=== PATIENT | male | born 1965 | race Hispanic/Latino ===

== ENCOUNTER 2020-02-29 10:11 | Observation (INO) | payer MEDICAID ==
[~2020-02-29] VITALS: Ht 172.7 cm; Wt 99.0 kg
--- NOTE | 2020-02-29 11:13 | NUR ---
PT AMBULATED TO RM 10 WITH STEADY GAIT.
--- NOTE | 2020-02-29 12:10 | NUR ---
PT RESTING NO FURTHER COMPLAINTS, NO S/S OF DISTRESS, STATES HE HAS BEEN COUGHING FOR LAST 2 MONTHS AND HE THINKS THAT MAY BE PART OF THE PAINHE IS HAVING.
[2020-02-29 12:25] LABS: HEMATOCRIT 48.8 % (39.0-50.0); HEMOGLOBIN 15.8 g/dl (14.0-18.0); IMMATURE GRANULOCYTES 0.4 % (0.0-5.0); MEAN CELL VOLUME 81.3 fL CALC (80.0-100.0); MEAN CORPUSCULAR HGB 26.3 pG CALC (26.0-32.0); MEAN CORPUSCULAR HGB CONC 32.4 g/dL CAL (32.0-36.0); NEUT# 4.31 thou/uL (1.82-7.42); RED CELL DISTRI WIDTH 12.1 % (11.5-15.5)
[2020-02-29 12:48] LABS: ALBUMIN 4.3 g/dL (3.2-5.0); ALKALINE PHOSPHATASE 130 u/l (38-126); ANION GAP 13 (6-22 (CALC)); BILIRUBIN, TOTAL 0.8 mg/dL (0.0-1.4); BUN 12 mg/dL (9-20); BUN/CREATININE RATIO 17 (12-20 (CALC)); CARBON DIOXIDE 26 mmol/l (22-30); CHLORIDE 99 mmol/l (95-108); CREATININE 0.7 mg/dL (0.7-1.3); GFR > 60 ML/MIN (>=60 (CALC)); GFR FOR AFR.AMER. > 60 ML/MIN (>=60 (CALC)); LIPASE 41 u/l (23-300); POTASSIUM 4.3 mmol/l (3.5-5.1); SGOT/AST 50 u/l (17-59); TOTAL PROTEIN 7.7 g/dL (6.3-8.2)
[2020-02-29 12:49] LABS: SODIUM 134 mmol/l (137-146)
--- NOTE | 2020-02-29 13:15 | NUR ---
PT RESTING AWARE OF PLANNED ADMISSION, GIVES VERBAL CONSENT, OFFERS NO NEW COMPLAINTS
--- NOTE | 2020-02-29 14:15 | NUR ---
AMBULATED TO BATHROOM, USING URINAL FOR SPECIMEN COLLECTION, AMBUALTED WUITH STEADY GAIT TO AND FROM, WILL CONTINUE TO MONTIOR.
--- NOTE | 2020-02-29 15:00 | NUR ---
PT AWARE THAT WE P[REFER TO HAVE IV ACCESS SO THAT IF HE HAS ANY ISSUES [employer] ARE NOT TRYING TO START AN IV UNDER DURESS, PT STATES HE WOULD STILL RATHER WAIT WILL NOTIFY PROVIDER
--- NOTE | 2020-02-29 15:06 | NUR ---
PT DECLINES IV ACCESS AT THIS TIME, Michelle STANTON APRN AT BEDSIDE AND AWARE
--- NOTE | 2020-02-29 15:22 | NUR ---
REPORT CALLED TO GAYATHRI CLARK ON MED SURG
--- NOTE | 2020-02-29 15:32 | NUR ---
PT TRANSFERRED TO MED SURG VIA W/C WITH TEL BOX IN PLACE, PROVIDER AWARE OF NO IV ACCESS AND OK WITH AT THIS TIME
[2020-02-29 15:33] VITALS: BP 145/106
--- NOTE | 2020-02-29 15:33 | NUR ---
PT ARRIVED TO PT VIA WC ACCOMPANIED BY CHOLO ROSENBERG. A&O X3. PT STEADY DURING AMBULATION. PT VOICES SLIGHT CP, 10/15. PT REFUSED IV SITE, KELSEY ROE AWARE AND ORDER FOR NO IV ACCESS APPROVAL IN CHART. EXPLAINED TO PT THAT IF IV SITE WAS NEEDED IT WAS TO BE PLACED. PT VERBALIZED UNDERSTANDING. ORIENTED PT TO ROOM. STEPHEN DORADO REFUSED. ASSESSMENT COMPLETED. DISCUSSED POC. CALL LIGHT IN REACH. CONTINUE TO MONITOR.
--- NOTE | 2020-02-29 16:50 | NUR ---
BP REEVALUATED MANUALLY 140/90
--- NOTE | 2020-02-29 18:24 | NUR ---
PT SITTING IN BED. NO NEEDS OR DISTRESS AT THIS TIME. CONTINUE TO MONITOR.
[2020-02-29 18:33] LABS: URINE BILIRUBIN - DIPSTICK NEGATIVE (NEGATIVE); URINE BLOOD DIPSTICK NEGATIVE (NEGATIVE); URINE COLOR YELLOW; URINE GLUCOSE - DIPSTICK >=1000 mg/dL (NEGATIVE); URINE KETONE 15 mg/dL (NEGATIVE); URINE LEUK ESTERASE NEGATIVE (NEGATIVE); URINE NITRITE - DIPSTICK NEGATIVE (Negative); URINE PH 5.5 (4.5-8.0); URINE PROTEIN - DIPSTICK NEGATIVE (NEG-TRACE); URINE SPECIFIC GRAVITY >=1.030; URINE UROBILINOGEN - DIPSTICK 0.2 E.U./dL (0.2)
[2020-02-29 18:53] VITALS: BP 132/88
--- NOTE | 2020-02-29 19:00 | NUR ---
REPORT RECIEVED FROM Yohannes CAMPOVERDE RN, CARE OF PT ASSUMED AT THIS TIME.
--- NOTE | 2020-02-29 20:10 | NUR ---
PT RESTING IN BED, APPEARS COMFORTABLE, NO APPARENT DISTRESS. PHYSICAL ASSESMENT COMPLETE. DENIES PAIN OR DISCOMFORT AT THIS TIME. SCHEDULED MEDICATIONS ADMINISTERED, SEE E-MAR. APPLE JUICE PROVIDED PER PTS REQUEST. PT DENIES FURTHER NEEDS AT THIS TIME. PLAN OF CARE REVIEWED, PT DENIES QUESTIONS AND VERBALIZES UNDERSTANDING. CALL ROSSI WITHIN REACH, AGREES TO CALL PRN.
--- NOTE | 2020-02-29 22:05 | NUR ---
MICROWAVED DINNER TRAY PROVIDED PER PTS REQUEST.
[2020-02-29 23:50] VITALS: BP 132/85
--- NOTE | 2020-03-01 00:12 | NUR ---
NAVAL ARCHITECT SPECIALIST GIFTY AT BEDSIDE TO DRAW BLOOD.
--- NOTE | 2020-03-01 01:22 | NUR ---
TROPONIN RESULTED, RESULTS NEGATIVE.
[2020-03-01 03:48] VITALS: BP 117/69
[2020-03-01 06:07] LABS: CHOLESTEROL HDL RATIO 8.9 (<4.4 (CALC))
[2020-03-01 08:20] VITALS: BP 153/89
--- NOTE | 2020-03-01 08:20 | NUR ---
ASSESSMENT IS COMPLETED; PT HAS NO IV SITE / REFUSES UNLESS NEEDS IT. HR IS REG,PULSES ARE STRONG X4, ABD IS SOFT WITH ACTIVE BS. BREATH SOUNDS ARE CLEAR BILATERALLY. TELE MONITOR IN PLACE.
[2020-03-01] MEDS ORDERED: JARDIANCE25 MG PO (09:53)
[2020-03-01] MEDS ORDERED: PROTONIX40 M2 PO (09:53)
[2020-03-01] MEDS ORDERED: METFORMIN500 M2 PO (09:54)
[2020-03-01 10:30] VITALS: BP 139/89
--- NOTE | 2020-03-01 10:56 | NUR ---
PT RECEIVED DISCHARGE INSTRUCTIONS AND VERBALIZED UNDERSTANDING. AMBUALTED OFF THE UNIT. Discharge instructions given. Patient verbalizes understanding of same. Discharged in stable condition via Ambulatory to Home with family. All belongings sent with pt.
--- NOTE | 2020-03-01 11:10 | NUR ---
HAD TO CALL PT RE: SCRIPT FOR THE GLUCOMETER, MET PT DOWNSTAIRS. TO GIVE THE SCRIPT TO.
--- NOTE | 2020-03-01 11:33 | NUR ---
GAVE PETE FRIEND NAME TO PT TO CALL FOR DIETARY INFORMATION ON DIABETES.
== END 2020-03-01 10:58 | disposition home or self-care (01) ==
LOC: ED 10:11 → ED-I 12:50 → ED 13:45 → MS2 13:46
PROVIDERS: Family Medicine; Nurse Practitioner; ADMIT Internal Medicine; ATTEND Internal Medicine
DX: R07.81 Pleurodynia (principal); E11.65 Type 2 diabetes mellitus with hyperglycemia; K21.9 Gastro-esophageal reflux disease without esophagitis; Z20.828 Contact with and (suspected) exposure to other viral communicable diseases
CPT/HCPCS: G0378; J1650